=== PATIENT | female | born 1995 ===

== ENCOUNTER 2024-03-26 22:34 | Outpatient (REF) | payer MEDICAID, SELFPAY ==
--- OUTSIDE RECORDS SUMMARY | 2024-03-26 22:35 | XMS_ITS | Encounter Summary ---
Author Organization [facility] Address [address] [place] [address] Care Team Providers Care Dress Shoe Inspector Name Role Phone Unavailable Primary Care Provider Unavailabl e Encounter Details Date Type Department Care Team (Late st Contact Info) Description 03/18/[address] [facility] Pathology & Laboratory Medicine - [facility] [address] [place] [address] Outr Resulting Lab, Provider Social History Tobacco Use Types Packs/Day Years Used Date Smoking Tobacco: Never Assessed Sex and Gender Information Value Date Recorded Sex Assigned at Not on file Gender Identity Not on file Sexual Orientation Not on file documented as of this encounter Plan of Treatment Not on file documented as of this encounter Procedures Procedure Name Priority Date/Time Associated Diagnosis Comments THYROID ANTIBODIES Routine 03/18/2024 9:36 EDT documented in this encounter Results * THYROID ANTIBODIES (03/18/2024 9:36 EDT) Anti-Thyroglobulin <15 <=60 U/mL 2023 18:07 EDT [facility] Thyroperoxidase Ab 36 <=60 U/mL 2023 18:07 EDT [facility] Blood VENOUS BLOOD / Unknown 03/18/2024 9:36 EDT 03/18/2024 17:11 EDT Provider Outr Resulting Lab CHEMISTRY & BLOOD GAS ORDERABLES [facility] [address] [place], [place] [id number] documented in this encounter Visit Diagnoses Not on filedocumented in this encounter
--- OUTSIDE RECORDS SUMMARY | 2024-03-26 22:35 | XMS_ITS | Clinical Summary ---
Author Organization [facility] Address [address] [place] [address] Care Team Providers Care Building Code Administrator Name Role Phone Unavailable Primary Care Provider Unavailabl e Encounters Date Type Department Care Team Description 03/18/2024 Lab Requisition [facility] Pathology & Laboratory [address] [address] Outr Resulting Lab, Provider 03/18/2024 Lab Requisition [facility] Pathology & Laboratory [facility] [address] [place] [address] Outr Resulting Lab, Provider from Last 3 Months Social History Tobacco Use Types Packs/Day Years Used Date Smoking Tobacco: Never Assessed Sex and Gender Information Value Date Recorded Sex Assigned at Not on file Gender Identity Not on file Sexual Orientation Not on file Plan of Treatment Not on file Procedures Procedure Name Priority Date/Time Associated Diagnosis Comments T3 FREE Routine 03/18/2024 9:36 EDT THYROID ANTIBODIES Routine 03/18/2024 9:36 EDT from Last 3 Months Results * T3 FREE (03/18/2024 9:36 EDT) T3, Free 3.0 2.8 - 5.3 pg/mL 03/18/2024 17:45 EDT [facility] Blood VENOUS BLOOD / Unknown 03/18/2024 9:36 EDT 03/18/2024 17:11 EDT Provider Outr Resulting Lab CHEMISTRY & BLOOD GAS ORDERABLES [facility] [address] [place] [address] * THYROID ANTIBODIES (03/18/2024 9:36 EDT) Anti-Thyroglobulin <15 <=60 U/mL 2023 18:07 EDT [facility] Thyroperoxidase Ab 36 <=60 U/mL 2023 18:07 EDT [facility] Blood VENOUS BLOOD / Unknown 03/18/2024 9:36 EDT 03/18/2024 17:11 EDT Provider Outr Resulting Lab CHEMISTRY & BLOOD GAS ORDERABLES [facility] [address] [place] [address] from Last 3 Months
--- OUTSIDE RECORDS SUMMARY | 2024-03-26 22:35 | XMS_ITS | Encounter Summary ---
Author Organization [facility] Address [address] [place] [address] Care Team Providers Care Lock Master Name Role Phone Unavailable Primary Care Provider Unavailabl e Encounter Details Date Type Department Care Team (Late st Contact Info) Description 03/18/2024 Lab Requisition [facility] Pathology & Laboratory Medicine - [facility] [address] [place] [address] Outr Resulting Lab, Provider Social History Tobacco [...] Comments T3 FREE Routine 03/18/2024 9:36 EDT documented in this encounter Results * T3 FREE (03/18/2024 9:36 EDT) T3, Free 3.0 2.8 - 5.3 pg/mL 03/18/2024 17:45 EDT [facility] Blood VENOUS BLOOD / Unknown 03/18/2024 9:36 EDT 03/18/2024 17:11 EDT Provider Outr Resulting Lab CHEMISTRY & BLOOD GAS ORDERABLES [facility] [address] [place], [place] [address] documented in this encounter Visit Diagnoses Not on filedocumented in this encounter
--- OUTSIDE RECORDS SUMMARY | 2024-03-26 22:35 | XMS_ITS | Referral Summary ---
Author Organization [facility] Address [address] [place] [address] Care Team Providers Care Truck Technician Name Role Phone Unavailable Primary Care Provider Unavailabl e Encounters Date Type Department Care Team Description 03/18/2024 Lab Requisition [facility] Pathology & Laboratory [facility] [address] [place] [address] Outr Resulting Lab, Provider 03/18/2024 Lab Requisition [facility] Pathology & Laboratory [facility] [address] [place] [address] Outr Resulting Lab, Provider from Last 3 [...] 2.8 - 5.3 pg/mL 03/18/2024 17:45 EDT [facility] Blood VENOUS BLOOD / Unknown 03/18/2024 9:36 EDT 03/18/2024 17:11 EDT Provider Outr Resulting Lab CHEMISTRY & BLOOD GAS ORDERABLES [facility] [address] [place] [address] * THYROID ANTIBODIES (03/18/2024 9:36 EDT) Anti-Thyroglobulin <15 <=60 U/mL 2023 18:07 EDT [facility] Thyroperoxidase Ab 36 <=60 U/mL 2023 18:07 EDT [facility] Blood VENOUS BLOOD / Unknown 03/18/2024 9:36 EDT 03/18/2024 17:11 EDT Provider Outr Resulting Lab CHEMISTRY & BLOOD GAS ORDERABLES [facility] [address] [place] [address] from Last 3 Months
== END 2024-03-26 22:35 | disposition home or self-care (01) ==
LOC: LBN 22:34
PROVIDERS: Visit Provider Naturopath
DX: R30.0 Dysuria (principal); N39.0 Urinary tract infection, site not specified
CPT/HCPCS: 87086